=== PATIENT | male | born 1945 | race African-American/Black ===

== ENCOUNTER 2019-05-09 21:49 | Observation (INO) ==
[2019-05-09] MEDS ORDERED: ONDANSETRON 4 MG/2 ML VIAL IV STA (22:46)
[2019-05-09] MEDS ORDERED: KETOROLAC 30 MG/1 ML VIAL IV STA (22:46)
[2019-05-09] MEDS ORDERED: HYDROmorphone 2 MG/1 ML VIAL IV STA (22:46)
[2019-05-10 01:35] LABS: Basophils % 0.2 % (0.0-0.8); Hematocrit 43.1 VOL% (42.0-52.0); Hemoglobin 13.1 GM/DL (14.0-18.0); Immature Granulocytes % 0.8 %; Immature Granulocytes Absolute 0.15 #; Lymphocytes # 0.6 10*3/uL (1.4-4.0); Lymphocytes % 3.2 % (21.2-54.2); Mean Corpuscular HGB Conc 30.4 GM/DL (32-36); Mean Platelet Volume 11.2 FL (9.6-12.0); Monocytes % 7.8 % (1.7-12.7); NRBC # 0.07 10*3/uL; Platelet Count 185 T/CUMM (130-400); Red Blood Count 5.01 MC/CUMM (3.8-5.5); Red Cell Distribution Width 15.8 % (9.3-17.3); White Blood Count 17.7 T/CUMM (4-12)
[2019-05-10] MEDS ORDERED: MAGNESIUM HYDROXIDE SUSP 30 ML UDCUP PO PRN (02:37)
[2019-05-10] MEDS ORDERED: HYDROmorphone 2 MG/1 ML VIAL IV PRN (02:37)
[2019-05-10] MEDS ORDERED: ONDANSETRON 4 MG/2 ML VIAL IV PRN (02:37)
[2019-05-10 02:48] LABS: Alkaline Phosphatase 94 U/L (45-117); Calcium 8.4 MG/DL (8.5-10.1)
[2019-05-10 02:49] LABS: Alanine Aminotransferase 118 U/L (16-61); Aspartate Amino Transferase 62 U/L (0-37); Bilirubin,Total 0.58 MG/DL (0.2-1.0); Estimated Glom Filtration Rate 32 ML/MIN; Total Protein 6.5 G/DL (6.4-8.3)
[2019-05-10 02:50] LABS: Blood Urea Nitrogen 61 MG/DL (7-18); Glucose 84 MG/DL (74-106); Osmolality,Calculated 303.7 MOS/KG (273-304)
[2019-05-10] MEDS ORDERED: ceFAZolin 2,000 MG in PREMIX 1 EACH IV ONE ×2 (03:00→06:00)
[2019-05-10 03:05] LABS: Lymphocytes 3 % (20-55); Platelet Estimate Adequate; Segmented Neutrophils 85 % (50-85); Total Cells Counted 100
[2019-05-10 03:06] LABS: Polychromasia Few
[2019-05-10 03:11] LABS: PT Patient Result 12.1 SECS (9.8-11.9)
[2019-05-10 03:12] LABS: INR 1.1
[2019-05-10] MEDS: SODIUM CHLORIDE 0.9% 1,000 ML IV SCH (04:14)
[2019-05-10 06:16] LABS: Calcium 8.3 MG/DL (8.5-10.1); Osmolality,Calculated 305.6 MOS/KG (273-304)
[2019-05-10] MEDS ORDERED: SODIUM POLYSTYRENE SULFATE 15 GM/60 ML BOTTLE RECTAL ONE (06:31)
[2019-05-10] MEDS ORDERED: CALCIUM GLUCONATE 1,000 MG in SODIUM CHLORIDE 0.9% 100 ML IV ONE (06:31)
[2019-05-10] MEDS ORDERED: DEXTROSE 10% 250 ML BAG IV ONE (06:32)
[2019-05-10 10:02] LABS: Ferritin 22.4 ng/ml (26-388)
[2019-05-10] MEDS ORDERED: AZITHROMYCIN 250 MG TABLET PO ONE (11:00)
[2019-05-11] MEDS: SODIUM CHLORIDE 0.9% 1,000 ML IV SCH
[2019-05-11] MEDS: AZITHROMYCIN 250 MG TABLET PO SCH (08:11)
[2019-05-11] MEDS: ENOXAPARIN 40 MG/0.4 ML SYRINGE SUBCUT SCH (09:32)
[2019-05-11 10:46] LABS: Basophils % 0.1 % (0.0-0.8); Eosinophils % 0.1 % (0.00-10.9); Hemoglobin 13.5 GM/DL (14.0-18.0); Immature Granulocytes % 0.8 %; Immature Granulocytes Absolute 0.12 #; Lymphocytes # 0.9 10*3/uL (1.4-4.0); Lymphocytes % 5.9 % (21.2-54.2); Mean Corpuscular HGB Conc 29.3 GM/DL (32-36); Mean Platelet Volume 11.4 FL (9.6-12.0); Monocytes % 10.7 % (1.7-12.7); NRBC # 0.17 10*3/uL; Neutrophils % 82.4 % (38.7-73.9); Platelet Count 177 T/CUMM (130-400); Red Blood Count 5.17 MC/CUMM (3.8-5.5); Red Cell Distribution Width 15.9 % (9.3-17.3); White Blood Count 14.7 T/CUMM (4-12)
[2019-05-11 12:55] LABS: Albumin 2.8 G/DL (3.4-5.0); Bilirubin,Total 0.8 MG/DL (0.2-1.0); Osmolality,Calculated 308.8 MOS/KG (273-304); Total Protein 6.2 G/DL (6.4-8.3)
[2019-05-11 12:59] LABS: Calcium 8.2 MG/DL (8.5-10.1)
[2019-05-11] MEDS ORDERED: SODIUM POLYSTYRENE SULFATE 15 GM/60 ML BOTTLE PO ONE (14:00)
[2019-05-11] MEDS ORDERED: CALCIUM GLUCONATE 2,000 MG in SODIUM CHLORIDE 0.9% 100 ML IV ONE (16:00)
[2019-05-11] MEDS: DEXTROSE 5% NACL 0.45% 1,000 ML IV SCH (16:45)
[2019-05-12] MEDS: DEXTROSE 5% NACL 0.45% 1,000 ML IV SCH ×2 (05:14→12:39)
[2019-05-12 05:57] LABS: Basophils % 0.1 % (0.0-0.8); Hematocrit 43.1 VOL% (42.0-52.0); Hemoglobin 12.5 GM/DL (14.0-18.0); Immature Granulocytes % 0.6 %; Immature Granulocytes Absolute 0.08 #; Lymphocytes # 0.5 10*3/uL (1.4-4.0); Lymphocytes % 3.6 % (21.2-54.2); Mean Corpuscular Volume 88.5 FL (87-102); Mean Platelet Volume 11.2 FL (9.6-12.0); Monocytes % 9.9 % (1.7-12.7); NRBC # 0.25 10*3/uL; Neutrophils % 85.8 % (38.7-73.9); Platelet Count 171 T/CUMM (130-400); Red Blood Count 4.87 MC/CUMM (3.8-5.5); Red Cell Distribution Width 15.9 % (9.3-17.3); White Blood Count 12.4 T/CUMM (4-12)
[2019-05-12 06:02] LABS: Calcium 8.1 MG/DL (8.5-10.1)
[2019-05-12 06:03] LABS: Band Neutrophils 1 % (0-10); Lymphocytes 5 % (20-55); Metamyelocytes 1 %; Segmented Neutrophils 86 % (50-85); Total Cells Counted 100
[2019-05-12 06:05] LABS: Hypochromasia Slight; Ovalocytes 1+; Platelet Estimate Normal; Polychromasia Few
[2019-05-12] MEDS ORDERED: ALBUMIN 25% 25 GM in PREMIX 1 EACH IV ONE (08:00)
[2019-05-12] MEDS: ENOXAPARIN 40 MG/0.4 ML SYRINGE SUBCUT SCH (08:10)
[2019-05-12] MEDS: AZITHROMYCIN 250 MG TABLET PO SCH (08:10)
[2019-05-12] MEDS ORDERED: CALCIUM GLUCONATE 2,000 MG in SODIUM CHLORIDE 0.9% 100 ML IV ONE (09:00)
[2019-05-12] MEDS ORDERED: SODIUM POLYSTYRENE SULFATE 15 GM/60 ML BOTTLE PO ONE (09:00)
[2019-05-12] MEDS ORDERED: FUROSEMIDE 40 MG/4 ML VIAL IV ONE (11:00)
[2019-05-12] MEDS: SODIUM ZIRCONIUM CYCLOSILICATE 10 GM PACK PO SCH ×2 (16:30→20:57)
[2019-05-13 05:01] LABS: Calcium 8.1 MG/DL (8.5-10.1); Osmolality,Calculated 310.1 MOS/KG (273-304)
[2019-05-13 05:07] LABS: Basophils % 0.1 % (0.0-0.8); Hematocrit 42.7 VOL% (42.0-52.0); Immature Granulocytes % 0.6 %; Lymphocytes # 0.3 10*3/uL (1.4-4.0); Lymphocytes % 1.8 % (21.2-54.2); Mean Corpuscular HGB Conc 30.2 GM/DL (32-36); Mean Corpuscular Volume 85.7 FL (87-102); Mean Platelet Volume 11.8 FL (9.6-12.0); Monocytes % 7.3 % (1.7-12.7); NRBC # 0.48 10*3/uL; Neutrophils % 90.2 % (38.7-73.9); Platelet Count 176 T/CUMM (130-400); Red Blood Count 4.98 MC/CUMM (3.8-5.5); Red Cell Distribution Width 15.9 % (9.3-17.3); White Blood Count 16.9 T/CUMM (4-12)
[2019-05-13 05:10] LABS: Hemoglobin 12.9 GM/DL (14.0-18.0)
[2019-05-13 05:17] LABS: Nucleated Red Blood Cells 6 (0-5); Platelet Estimate Normal; Polychromasia Few; Segmented Neutrophils 86 % (50-85); Total Cells Counted 100
[2019-05-13 06:58] LABS: Hepatitis B Core IgM Quant < 0.05 Index; Hepatitis B Surface Ag Quant < 0.10 Index; Hepatitis B Surface Ag Result Negative (Negative); Hepatitis C Virus Ab Quant 0.11 Index; Hepatitis C Virus Ab Result Negative (Negative)
[2019-05-13] MEDS ORDERED: ENOXAPARIN 30 MG/0.3 ML SYRINGE SUBCUT SCH (09:00)
[2019-05-13 16:54] VITALS: BP 146/75
== END 2019-05-13 17:55 | disposition home or self-care (01) ==
LOC: EDUNIT# → EDBD → N.ED 21:49 → SUATTDRO 05-10 01:30 → N.EDINP 05-10 01:30 → INTOOBSV 05-10 01:30 → N.3E 05-10 02:22 → N.2E 05-10 08:05 → UNDODISOB 05-10 16:25 → N.2W 05-10 21:05
PROVIDERS: ADMIT Orthopaedic Surgery; ATTEND Family Medicine

== ENCOUNTER 2019-05-15 13:11 | Inpatient (IN) ==
[2019-05-15 15:11] LABS: Albumin 2.6 G/DL (3.4-5.0); Bilirubin,Total 1.1 MG/DL (0.2-1.0); Calcium 8.6 MG/DL (8.5-10.1); Osmolality,Calculated 315.3 MOS/KG (273-304); Total Protein 5.9 G/DL (6.4-8.3)
[2019-05-15 15:14] LABS: Basophils % 0.1 % (0.0-0.8); Hematocrit 42.6 VOL% (42.0-52.0); Hemoglobin 12.9 GM/DL (14.0-18.0); Immature Granulocytes % 1.8 %; Immature Granulocytes Absolute 0.28 #; Lymphocytes # 0.4 10*3/uL (1.4-4.0); Lymphocytes % 2.4 % (21.2-54.2); Mean Corpuscular HGB Conc 30.3 GM/DL (32-36); Mean Corpuscular Volume 84.9 FL (87-102); Monocytes % 8.6 % (1.7-12.7); NRBC # 0.14 10*3/uL; Neutrophils % 87.1 % (38.7-73.9); Platelet Count 146 T/CUMM (130-400); Red Blood Count 5.02 MC/CUMM (3.8-5.5); Red Cell Distribution Width 15.3 % (9.3-17.3); White Blood Count 15.5 T/CUMM (4-12)
[2019-05-15 15:18] LABS: Lymphocytes 5 % (20-55); Platelet Estimate Normal; Segmented Neutrophils 92 % (50-85); Total Cells Counted 100
[2019-05-15 15:19] LABS: Microcytosis Slight
[2019-05-15] MEDS ORDERED: SODIUM CHLORIDE 0.9% 500 ML IV STA (15:47)
[2019-05-15] MEDS ORDERED: MAGNESIUM SULF RIDER 4 GM in PREMIX 1 EACH IV PRN (16:35)
[2019-05-15] MEDS ORDERED: ONDANSETRON 4 MG/2 ML VIAL IV PRN (16:35)
[2019-05-15] MEDS ORDERED: DOCUSATE SODIUM 100 MG CAPSULE PO PRN (16:35)
[2019-05-15] MEDS ORDERED: GLUCAGON 1 MG VIAL IM PRN (16:35)
[2019-05-15] MEDS ORDERED: MAGNESIUM SULF RIDER 2 GM in PREMIX 1 EACH IV PRN (16:35)
[2019-05-15] MEDS: AZITHROMYCIN 250 MG TABLET PO SCH (18:39)
[2019-05-15] MEDS: FONDAPARINUX 2.5 MG/0.5 ML SYRINGE SUBCUT SCH (22:44)
[2019-05-15] MEDS: BUMETANIDE 1 MG/4 ML VIAL IV SCH (22:44)
[2019-05-16 06:05] LABS: Basophils % 0.5 % (0.0-0.8); Hematocrit 41.5 VOL% (42.0-52.0); Hemoglobin 12.6 GM/DL (14.0-18.0); Immature Granulocytes % 0.7 %; Immature Granulocytes Absolute 0.03 #; Lymphocytes # 0.1 10*3/uL (1.4-4.0); Lymphocytes % 1.4 % (21.2-54.2); Mean Corpuscular HGB Conc 30.4 GM/DL (32-36); Mean Corpuscular Volume 83.7 FL (87-102); Mean Platelet Volume 10.5 FL (9.6-12.0); Monocytes % 5.3 % (1.7-12.7); NRBC # 0.18 10*3/uL; Neutrophils % 92.1 % (38.7-73.9); Platelet Count 111 T/CUMM (130-400); Red Blood Count 4.96 MC/CUMM (3.8-5.5); Red Cell Distribution Width 15.3 % (9.3-17.3); White Blood Count 4.3 T/CUMM (4-12)
[2019-05-16 06:11] LABS: Albumin 2.5 G/DL (3.4-5.0); Bilirubin,Total 1.4 MG/DL (0.2-1.0); Calcium 8.5 MG/DL (8.5-10.1); Osmolality,Calculated 319.4 MOS/KG (273-304); Total Protein 5.7 G/DL (6.4-8.3)
[2019-05-16 07:07] LABS: Smudge Cells 1+; Total Cells Counted 100
[2019-05-16 07:12] LABS: Band Neutrophils 68 % (0-10); Lymphocytes 4 % (20-55); Metamyelocytes 2 %; Nucleated Red Blood Cells 9 (0-5); Segmented Neutrophils 20 % (50-85)
[2019-05-16 07:13] LABS: Anisocytosis 1+; Macrocytosis 1+; Platelet Estimate Adequate; Target Cells Few
[2019-05-16] MEDS ORDERED: PANTOPRAZOLE 40 MG TABLET PO SCH (09:00)
[2019-05-16] MEDS ORDERED: SODIUM CHLORIDE 0.9% 1,000 ML IV ONE (09:59)
[2019-05-16] MEDS: AZITHROMYCIN 250 MG TABLET PO SCH (10:20)
[2019-05-16] MEDS ORDERED: SODIUM CHLORIDE 0.9% 1,100 ML IV ONE (10:27)
[2019-05-16] MEDS ORDERED: LEVOFLOXACIN INJ 750 MG in PREMIX 1 EACH IV SCH (10:30)
[2019-05-16 11:51] LABS: Amorphous Crystals,Urine Few /HPF (Few); Apearance,Urine Slightly Hazy (Clear); Bacteria,Urine Moderate /HPF (Few); Bilirubin,Urine Negative (Negative); Blood, Urine Moderate mg/dL (Negative); Glucose,Urine (UA) Negative (Negative); Ketones,Urine Negative (Negative); Mucus,Urine Occasional /LPF (Occasional); Nitrite,Urine Positive (Negative); Protein,Urine Negative; Squamous Epithelial Cell,Urine Occasional /HPF (0-10); Urine Color Yellow (Yellow); Urine Urobilinogen < 2.0 EU/DL (0.2-1.0); WBC,Urine 50 /HPF (0-6)
[2019-05-16] MEDS ORDERED: ACETAMINOPHEN 325 MG TABLET PO PRN (12:41)
[2019-05-16] MEDS: BUMETANIDE 1 MG/4 ML VIAL IV SCH (12:48)
[2019-05-16 13:05] LABS: ABG Base Excess 1.5 MMOL/L (-2.5-2.5); ABG HCO3 26.8 MMOL/L (20-26); ABG Oxygen Saturation 89.4 % (95-100); ABG PH 7.392 (7.35-7.45); ABG PO2 60.6 MM HG (80-95); ABG TCO2 28.1 MMOL/L (23-27)
[2019-05-16 13:15] LABS: Ferritin 27.9 ng/ml (26-388)
[2019-05-16] MEDS ORDERED: ZINC SULFATE 220 MG CAPSULE PO SCH (14:30)
[2019-05-16] MEDS ORDERED: dilTIAZem Drip 125 MG/125 ML PREMIX IV SCH (14:30)
[2019-05-16] MEDS: PIPERACILLIN/TAZOBACTAM 3,375 MG in SODIUM CHLORIDE 0.9% 100 ML IV SCH ×2 (17:30→23:03)
[2019-05-16 19:52] LABS: ABG Base Excess -5.2 MMOL/L (-2.5-2.5); ABG Oxygen Saturation 92.1 % (95-100); ABG PCO2 36.3 MM HG (35-48); ABG PH 7.345 (7.35-7.45); ABG PO2 68.3 MM HG (80-95); ABG TCO2 17.8 MMOL/L (23-27)
[2019-05-16] MEDS ORDERED: ETOMIDATE 20 MG/10 ML VIAL IV ONE (19:53)
[2019-05-16] MEDS ORDERED: SUCCINYLCHOLINE 200 MG/10 ML VIAL ONE (19:54)
[2019-05-16] MEDS ORDERED: NOREPINEPHRINE 4 MG/4 ML VIAL IV ONE (20:00)
[2019-05-16] MEDS: NOREPINEPHRINE 8 MG in SODIUM CHLORIDE 0.9% 242 ML IV PRN ×2 (20:00→22:59)
[2019-05-16] MEDS ORDERED: VECURONIUM 10 MG VIAL IV ONE (20:00)
[2019-05-16] MEDS ORDERED: PHENYLEPHRINE DRIP 40 MG/250 ML PREMIX IV ONE (20:47)
[2019-05-16] MEDS ORDERED: HYDROXYCHLOROQUINE 200 MG TABLET PO SCH (21:00)
[2019-05-16] MEDS: PHENYLEPHRINE DRIP 40 MG/250 ML PREMIX IV PRN ×2 (21:00→23:27)
[2019-05-16 21:53] LABS: ABG Base Excess -11.4 MMOL/L (-2.5-2.5); ABG HCO3 17.6 MMOL/L (20-26); ABG Oxygen Saturation 99.1 % (95-100); ABG PCO2 54.6 MM HG (35-48); ABG PO2 410.5 MM HG (80-95); ABG TCO2 19.3 MMOL/L (23-27)
[2019-05-16 21:54] LABS: ABG PH 7.127 (7.35-7.45)
[2019-05-16 22:05] LABS: Blood Urea Nitrogen 56 MG/DL (7-18); Estimated Glom Filtration Rate 33 ML/MIN; Osmolality,Calculated 319.4 MOS/KG (273-304)
[2019-05-16 22:08] LABS: Calcium 5.7 MG/DL (8.5-10.1); Glucose < 4 MG/DL (74-106)
[2019-05-16] MEDS ORDERED: DEXTROSE 50% 25 GM/50 ML SYRINGE IV PRN (22:11)
[2019-05-16 22:15] VITALS: BP 82/51
[2019-05-16] MEDS: DEXTROSE 10% 250 ML BAG IV PRN (22:16)
[2019-05-16 22:22] LABS: INR 2.2
[2019-05-16] MEDS ORDERED: CALCIUM GLUCONATE 2,000 MG in SODIUM CHLORIDE 0.9% 100 ML IV ONE (22:28)
[2019-05-16] MEDS ORDERED: DEXTROSE 5% NACL 0.45% 1,000 ML IV SCH (22:30)
[2019-05-16 22:32] LABS: Partial Thromboplastin Time 56.7 SECS (23.9-33.8)
[2019-05-16] MEDS: FONDAPARINUX 2.5 MG/0.5 ML SYRINGE SUBCUT SCH (22:57)
[2019-05-16 23:24] LABS: Basophils % 0.4 % (0.0-0.8); Eosinophils # 0.2 10*3/uL (0.0-0.87); Eosinophils % 3.3 % (0.00-10.9); Hematocrit 35.8 VOL% (42.0-52.0); Immature Granulocytes % 1.1 %; Immature Granulocytes Absolute 0.08 #; Lymphocytes # 0.3 10*3/uL (1.4-4.0); Lymphocytes % 3.7 % (21.2-54.2); Mean Corpuscular HGB Conc 27.9 GM/DL (32-36); Mean Corpuscular Volume 91.6 FL (87-102); Mean Platelet Volume 11.5 FL (9.6-12.0); Monocytes % 1.4 % (1.7-12.7); NRBC # 1.23 10*3/uL; Neutrophils % 90.1 % (38.7-73.9); Platelet Count 53 T/CUMM (130-400); Red Blood Count 3.91 MC/CUMM (3.8-5.5); Red Cell Distribution Width 15.9 % (9.3-17.3); White Blood Count 7.2 T/CUMM (4-12)
[2019-05-17 00:16] LABS: Total Cells Counted 100
[2019-05-17] MEDS: DEXTROSE 10% 250 ML BAG IV PRN ×2 (01:06→02:41)
[2019-05-17] MEDS: DEXTROSE 10% 1,000 ML IV SCH ×2 (01:20→07:36)
[2019-05-17] MEDS: NOREPINEPHRINE 8 MG in SODIUM CHLORIDE 0.9% 242 ML IV PRN ×3 (02:20→09:08)
[2019-05-17] MEDS: PHENYLEPHRINE DRIP 40 MG/250 ML PREMIX IV PRN ×3 (03:10→07:22)
[2019-05-17 05:18] LABS: ABG Oxygen Saturation 98.4 % (95-100); ABG PCO2 50.4 MM HG (35-48)
[2019-05-17 05:20] LABS: ABG PH 6.836 (7.35-7.45)
[2019-05-17] MEDS ORDERED: SODIUM BICARBONATE 50 MEQ/50 ML VIAL IV ONE ×2 (05:23→09:55)
[2019-05-17 07:30] LABS: Band Neutrophils 17 % (0-10); Lymphocytes 5 % (20-55); Metamyelocytes 5 %; Nucleated Red Blood Cells 29 (0-5); Segmented Neutrophils 70 % (50-85)
[2019-05-17 07:34] LABS: Polychromasia Few
[2019-05-17 07:35] LABS: Burr Cells Few; Ovalocytes Slight; Schistocytes Slight
[2019-05-17 07:36] LABS: Hypochromasia 1+
[2019-05-17 07:39] LABS: Platelet Estimate Decreased
[2019-05-17 08:57] LABS: ABG Base Excess -21.9 MMOL/L (-2.5-2.5); ABG PCO2 50.9 MM HG (35-48); ABG PO2 310.5 MM HG (80-95); ABG TCO2 11.6 MMOL/L (23-27)
[2019-05-17 08:59] LABS: ABG PH 6.912 (7.35-7.45)
[2019-05-17 09:06] LABS: Basophils # 0.1 10*3/uL (0.0-0.2); Basophils % 0.5 % (0.0-0.8); Eosinophils # 0.2 10*3/uL (0.0-0.87); Eosinophils % 2.3 % (0.00-10.9); Hematocrit 36.9 VOL% (42.0-52.0); Immature Granulocytes % 2.1 %; Immature Granulocytes Absolute 0.22 #; Lymphocytes # 0.5 10*3/uL (1.4-4.0); Lymphocytes % 4.7 % (21.2-54.2); Mean Corpuscular HGB Conc 25.2 GM/DL (32-36); Mean Corpuscular Volume 100.8 FL (87-102); Mean Platelet Volume 13.1 FL (9.6-12.0); Monocytes % 2.8 % (1.7-12.7); NRBC # 1.71 10*3/uL; Neutrophils % 87.6 % (38.7-73.9); Red Blood Count 3.66 MC/CUMM (3.8-5.5); Red Cell Distribution Width 16.4 % (9.3-17.3)
[2019-05-17 09:33] LABS: Calcium 6.4 MG/DL (8.5-10.1); Osmolality,Calculated 327.6 MOS/KG (273-304)
[2019-05-17 09:42] LABS: Hemoglobin 9.3 GM/DL (14.0-18.0); White Blood Count 10.5 T/CUMM (4-12)
[2019-05-17 09:43] LABS: Platelet Count 41 T/CUMM (130-400)
[2019-05-17] MEDS ORDERED: ATROPINE 1 MG/10 ML SYRINGE ONE (09:55)
[2019-05-17] MEDS ORDERED: EPINEPHrine 1 MG/10 ML SYRINGE ONE ×3 (09:55→20:29)
[2019-05-17 10:16] LABS: Band Neutrophils 8 % (0-10); Lymphocytes 13 % (20-55); Metamyelocytes 6 %; Myelocytes 3 %; Nucleated Red Blood Cells 24 (0-5); Segmented Neutrophils 66 % (50-85); Total Cells Counted 100
[2019-05-17 10:17] LABS: Hypochromasia 1+; Macrocytosis 1+
[2019-05-17 10:18] LABS: Platelet Estimate Decreased; Polychromasia Slight
[2019-05-17] MEDS ORDERED: SODIUM BICARBONATE 50 MEQ/50 ML SYRINGE IV ONE (20:29)
[2019-05-17] MEDS ORDERED: HYDROXYCHLOROQUINE 200 MG TABLET PO SCH (21:00)
== END 2019-05-17 10:49 | disposition expired | DRG 871 ==
LOC: EDBD → EDUNIT# → N.EDINP 13:11 → N.ED 13:11 → N.3E 17:26 → N.2E 05-16 16:03 → N.CC 05-16 20:23
PROVIDERS: ADMIT Family Medicine; ATTEND Family Medicine